=== PATIENT | female | born 1970 | race Caucasian/White ===

== ENCOUNTER 2023-10-22 07:35 | Emergency (ER) | payer MEDICAID ==
[~2023-10-22] VITALS: Ht 157.5 cm; Wt 89.5 kg
[~2023-10-22 07:35] MED LIST: HYDR28CR14 TOP; PIP1KIT5 TP
[2023-10-22 07:48] VITALS: BP 121/80; PULSE 94; RESP 18; TEMP 97.8; O2SAT 97
[2023-10-22] MEDS ORDERED: SULF1TAB49 PO (09:38)
[2023-10-22] MEDS: dexamethasone sod phosphate 10mg/ml inj IM STA (09:46)
== END 2023-10-22 09:51 | disposition home or self-care (01) ==
LOC: ER 07:35
DX: Z88.0 Allergy status to penicillin (principal); Z79.899 Other long term (current) drug therapy; Z79.2 Long term (current) use of antibiotics; J44.9 Chronic obstructive pulmonary disease, unspecified; F15.90 Other stimulant use, unspecified, uncomplicated; H01.9 Unspecified inflammation of eyelid
CPT/HCPCS: 96372; 99283; J1100

== ENCOUNTER 2023-11-25 15:43 | Emergency (ER) | payer MEDICAID ==
[~2023-11-25] VITALS: Ht 157.5 cm; Wt 91.0 kg
[2023-11-25 15:53] VITALS: BP 145/90; PULSE 93; RESP 16; TEMP 97.8; O2SAT 99
[2023-11-25] MEDS ORDERED: PRED20TA PO (22:31)
[2023-11-25] MEDS ORDERED: TRIA15CR61 TOP (22:31)
== END 2023-11-25 16:22 | disposition left against medical advice (07) ==
LOC: ER 15:43
DX: R21 Rash and other nonspecific skin eruption (principal); Z88.0 Allergy status to penicillin; Z53.21 Procedure and treatment not carried out due to patient leaving prior to being seen by health care provider

== ENCOUNTER 2023-11-25 21:15 | Emergency (ER) | payer MEDICAID ==
[~2023-11-25] VITALS: Ht 157.5 cm; Wt 90.5 kg
[2023-11-25] MEDS ORDERED: PRED20TA PO (22:31)
[2023-11-25] MEDS ORDERED: TRIA15CR61 TOP (22:31)
[2023-11-25] MEDS: dexamethasone 4mg tablet PO ONE (22:51)
[2023-11-25] MEDS: triamcinolone acetonide 40mg/ml inj IM ONE (22:55)
[2023-11-25 22:59] VITALS: BP 155/99; PULSE 80; RESP 18; TEMP 98; O2SAT 96
== END 2023-11-25 23:01 | disposition home or self-care (01) ==
LOC: ER 21:15
DX: R21 Rash and other nonspecific skin eruption (principal); J44.9 Chronic obstructive pulmonary disease, unspecified; F15.90 Other stimulant use, unspecified, uncomplicated; Z88.0 Allergy status to penicillin; Z79.899 Other long term (current) drug therapy
CPT/HCPCS: 96372; 99283; J3301